=== PATIENT | female | born 1970 | race Caucasian/White ===

== ENCOUNTER 2024-02-02 00:08 | Emergency (ER) | payer MEDICARE, MEDICAID, SELFPAY ==
--- NOTE | ~2024-02-02 | XR_ITS ---
EXAMINATION: XR knee LT 3V DATE: 02/02/2024 00:42 INDICATION: Left knee pain post fall TECHNIQUE: Anteroposterior, oblique and crosstable lateral views of the left knee were obtained COMPARISON: None. FINDINGS: Old healed proximal left fibular fracture which is healed in near-anatomic alignment. No acute fractu re. There are small marginal osteophytes in all 3 compartments of the knee without significant joint space narrowing on nonweightbearing imaging consistent with at least mild tricompartmental osteoarthr itis. Moderate size enthesophyte at the proximal pole of the patella. No joint effusion/layering lipo hemarthrosis. Soft tissues are unremarkable. IMPRESSION: 1. Mild tricompartmental osteoarthritis at the left knee with no joint effusion or acute osseous abno rmality. Reviewed, dictated and finalized at location A. IMPRESSION: 1. Mild tricompartmental osteoarthritis at the left knee with no joint effusion or acute osseous abnormality.
[2024-02-02 00:10] VITALS: BP 144/88; PULSE 71; RESP 16; TEMP 37; O2SAT 98
--- NOTE | 2024-02-02 01:22 | ED.LOWEXIN ---
HPI - Extremity Injury (Lower) General Chief Complaint: Extremity Injury, Lower Stated Complaint: L KNEE PAIN S/P FALL Time Seen by Provider: 02/02/24 01:08 Source: patient Mode of arrival: EMS Limitations: no limitations History of Present Illness HPI Narrative: Patient is a 53-year-old female who presents the ED via EMS with report of left knee pain. Patient reports she has a history of fibromyalgia, chronic back pain status post several back surgeries. She uses a mobility scooter for assistance with mobility. She does also have a cane and walker at home. She states she was riding her scooter earlier today around 1:30 p.m. in the afternoon when she fell off her scooter and landed directly on her left knee. She complains of pain to her left knee. Unable to ambulate. Denies numbness. Denies any other injuries. Related Data Allergies Allergy/AdvReac Type Severity Reaction Status Date / Time morphine Allergy Hypotension Verified 02/02/24 00:15 Penicillins Allergy Hives Verified 02/02/24 00:15 Review of Systems Review of Systems: CONSTITUTIONAL: Denies fever, chills, or sweats. MUSCULOSKELETAL: See HPI. NEUROLOGIC: Denies headache, dizziness, numbness, or weakness. All systems reviewed & are unremarkable except as noted in HPI and below Exam Narrative: GENERAL: Well appearing, obese with BMI of 38.2, non-toxic, in no acute distress. HEAD: Normocephalic, atraumatic. RESPIRATORY: Airway patent, respirations nonlabored. CARDIOVASCULAR: Regular rate and rhythm. Pedal pulses intact. MUSCULOSKELETAL: Moves all extremities. No gross deformities. Limited ROM of L knee d/t pain. TTP diffusely throughout L anterior knee joint spaces, worst medial and laterally. Minimal swelling noted. Sensation intact. SKIN: Warm, dry, normal color. NEURO: A&O X3. Speech clear. PSYCHIATRIC: Appropriate mood and affect. Normal interaction. Course Vital Signs Vital signs: Vital Signs Temperature 98.6 F 02/02/24 00:10 Pulse Rate 71 02/02/24 00:10 Respiratory Rate 16 02/02/24 00:10 Blood Pressure 144/88 H 02/02/24 00:10 Pulse Oximetry 98 02/02/24 00:10 Oxygen Delivery Room Air 02/02/24 00:10 Temperature 98.6 F 02/02/24 00:10 Pulse Rate 71 02/02/24 00:10 Respiratory Rate 16 02/02/24 00:10 Blood Pressure 144/88 H 02/02/24 00:10 Pulse Oximetry 98 02/02/24 00:10 Oxygen Delivery Room Air 02/02/24 00:10 MDM - Extremity Injury (Lower) MDM Narrative Medical decision making narrative: Patient?s injury is consistent with musculoskeletal etiology. No signs of neurologic or vascular compromise on physical examination. Compartments are soft without signs of compartment syndrome. XR of left knee interpreted by myself showing possible avulsion fracture of lateral femur, consistent with MCL insertion site. Will send to [facility] for official read. will treat as fracture. Patient placed in knee immobilizer. Will be given crutches for assistance with ambulation. She does also have walker/cane/ scooter at home. Recommended that patient be nonweightbearing until seen and cleared by Orthopedics. Will refer to orthopedics for further evaluation/ management of fracture. Pain medications sent to pharmacy. Patient given return precautions. Discharged in stable condition. Medical Records Attestation: I reviewed the patient's medical records. Imaging Data Attestation: I personally reviewed and interpreted this imaging study as follows: My impression: XR L knee: Possible avulsion fracture of lateral distal femur at mcl insertion site? +joint effusion. Discharge Plan Discharge Clinical Impression: Avulsion fracture of condyle of left femur Internal derangement of knee Qualifiers: Laterality: left Qualified Code(s): M23.92 - Unspecified internal derangement of left knee Patient Disposition: Home, Self-Care Condition: Stable Instructions: Antibiotic Form, Knee Sprain (ED), P.R.I.C.E. Tr
[2024-02-02] MEDS: HYDROcodone/acetaminophen (*CRX) 5-325 MG TABLET 1 TAB PO (01:25)
[2024-02-02] MEDS: KETOROLAC 30 MG/ML VIAL (*BKC) IM (01:25)
== END 2024-02-02 01:53 | disposition home or self-care (01) ==
LOC: ANHED 01:29
PROVIDERS: Emergency Provider Physician Assistant
DX: S72.422A Displaced fracture of lateral condyle of left femur, initial encounter for closed fracture (principal); M23.92 Unspecified internal derangement of left knee; V00.831A Fall from motorized mobility scooter, initial encounter
CPT/HCPCS: 73562; 96372; 99283; 99284; A9270; J1885

== ENCOUNTER 2024-02-04 17:47 | Emergency (ER) | payer MEDICARE, MEDICAID, SELFPAY ==
--- NOTE | ~2024-02-04 | US_ITS ---
EXAMINATION: US venous doppler [facility] DATE: 02/04/2024 20:17 INDICATION: left leg pain . TECHNIQUE: Grayscale images without and with compression and Doppler images of the left lower extremi ty veins were obtained. COMPARISON: None FINDINGS: The left common femoral vein, profunda (deep) femoral vein, femoral vein, popliteal vein, peroneal v ein, posterior tibial veins, and greater saphenous vein are patent. IMPRESSION: Patent left lower extremity veins. No evidence of deep venous thrombosis. Reviewed, dictated and finalized at location K.
[2024-02-04 17:49] VITALS: BP 150/82; PULSE 67; RESP 16; TEMP 37.2; O2SAT 100
[2024-02-04] MEDS: HYDROcodone/acetaminophen (*CRX) 5-325 MG TABLET 1 TAB PO (19:45)
--- NOTE | 2024-02-04 19:46 | ED.LOWEXIN ---
HPI - Extremity Injury (Lower) General Chief Complaint: Extremity Injury, Lower Stated Complaint: knee pain Time Seen by Provider: 02/04/24 18:40 Source: patient Mode of arrival: wheelchair Limitations: no limitations History of Present Illness HPI Narrative: Patient presents to the ER for left leg pain. Recently seen in the ER here for knee injury. Reports she ran out of her pain medication today. Has follow up with orthopedics in the morning. Reports the pain is radiating down into her calf and into the thigh. No new injuries. Denies fever, erythema or edema. Related Data Allergies Allergy/AdvReac Type Severity Reaction Status Date / Time morphine Allergy Hypotension Verified 02/02/24 00:15 Penicillins Allergy Hives Verified 02/02/24 00:15 Review of Systems Review of Systems: CONSTITUTIONAL: Denies fever SKIN: Denies rash MUSCULOSKELETAL: Reports joint pain, and myalgia. NEUROLOGIC: Denies numbness All systems reviewed & are unremarkable except as noted in HPI and below PMFSH Past Medical History Medical History (Updated 02/04/24 @ 21:00 by Sahara Stein PA-C) History of fibromyalgia Social History Social History (Updated 02/04/24 @ 21:00 by Sahara Stein PA-C) Substance use: never Exam Narrative: GENERAL: Well-appearing, well-nourished, and in no acute distress. HEAD: Normocephalic, atraumatic. EYES: EOMI. EXTREMITIES: Decreased active ROM in the left knee due to pain. No edema or erythema. Normal DP pulse. Normal sensation SKIN: Warm, dry, no rash. NEURO: No focal deficits. Alert and oriented x3. PSYCH: Normal mood and affect Course Course Emergency Course: Patient updated on her workup and agrees with plan of care Vital Signs Vital signs: Vital Signs Temperature 98.9 F 02/04/24 17:49 Pulse Rate 67 02/04/24 17:49 Respiratory Rate 16 02/04/24 17:49 Blood Pressure 150/82 H 02/04/24 17:49 Pulse Oximetry 100 02/04/24 17:49 Oxygen Delivery Room Air 02/04/24 17:49 Temperature 98.9 F 02/04/24 17:49 Pulse Rate 59 L 02/04/24 19:48 Respiratory Rate 18 02/04/24 19:48 Blood Pressure 147/90 H 02/04/24 19:48 Pulse Oximetry 100 02/04/24 19:48 Oxygen Delivery Room Air 02/04/24 17:49 MDM - Extremity Injury (Lower) MDM Narrative Medical decision making narrative: Patient presents to the ER for left leg pain. Recently seen in the ER here for knee injury. Currently wearing knee immobilizer. Reports she ran out of her pain medication today. Has follow up with orthopedics in the morning. Pain is now radiating into the calf and upper leg. She is neurovascularly intact. Left lower extremity venous Doppler without evidence of DVT. Patient instructed to have continued follow-up with orthopedics as planned. She was given warnings to return to the ER Differential Diagnosis Differential diagnosis: Likely acute internal derangement of knee and other (DVT) Imaging Data Radiologist's impression: ITS Impressions Venous Doppler Study 02/04/24 20:22 IMPRESSION: Patent left lower extremity veins. No evidence of deep venous thrombosis. Critical Care Time Critical Care Time Critical Care Time: No Discharge Plan Discharge Clinical Impression: Left leg pain Patient Disposition: Home, Self-Care Condition: Stable Instructions: Knee Sprain (ED) Additional Instructions: Return to the ER if you experience fever, redness and swelling of your extremity, numbness or any other symptoms that are concerning to you Wear knee immobilizer and use crutches. No weight on the affected leg. Ice and elevate extremity. Pain medication as needed and directed. Follow up with orthopedics for further care. Prescriptions: New hydrocodone-acetaminophen 5-325 mg tablet 1 tablet PO Q8H PRN (Reason: pain) Qty: 7 0RF No Action hydrocodone-acetaminophen 5-325 mg tablet 1 tablet PO Q6H PRN (Reason: pain) Qty: 10 0RF Follow-up/Refer
[2024-02-04 19:48] VITALS: BP 147/90; PULSE 59; RESP 18; O2SAT 100
== END 2024-02-04 21:16 | disposition home or self-care (01) ==
PROVIDERS: Emergency Provider Physician Assistant
DX: M79.605 Pain in left leg (principal); M79.7 Fibromyalgia
CPT/HCPCS: 93971; 99284; A9270